=== PATIENT | female | born 2000 | race Caucasian/White ===

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

== ENCOUNTER 2021-01-10 12:52 | Emergency (ER) | payer SELFPAY ==
[~2021-01-10] VITALS: Ht 160 cm; Wt 86.4 kg
[~2021-01-10 12:52] MED LIST changes: -TRAM-29 PO; +TRAM-48 PO
[2021-01-10 13:20] VITALS: BP 137/79
--- NOTE | 2021-01-10 15:17 | ED.ADGEN ---
Past Medical History Past Medical History: Bronchitis, IBS, Other Additional Past Medical Histor: pre diabetes, seasonal allergies Past Surgical History: Other Additional Past Surgical Histo: bilateral eye sx Smoking Status: Current Every Day Smoker Alcohol Use: Occasionally Drug Use: Marijuana General Adult EDM: Chief Complaint: SORE THROAT HPI: HPI: Patient is a 20 year old female who presents emergency department with complaints of a sore throat, runny nose, nasal congestion, and bilateral ear fullness for the last 3 days. She also complained that her eyes felt like they had been burning and she had had increased amounts of crusting upon awakening. She denied any vision changes, tearing, or eye discharge throughout the day. Patient had a history of seasonal allergies but is not taking any allergy medications at this time. She denied any known exposure to COVID-19. The patient denies any fever, cough, body aches, fatigue, rash, abdominal pain, nausea, vomiting, diarrhea, or shortness of breath. She currently rates her throat discomfort a 3 out of 10 on the pain scale she denies any alleviating factors, pain is worse with swallowing. Review of Systems: Review of Systems: Complete ROS is negative unless otherwise noted in HPI. Allergies: Allergies: Allergies Coded Allergies Type Severity Reaction Last Updated Verified Penicillins Allergy Intermediate HIVES 07/30/15 Yes Physical Exam: PE: See Above Constitutional: Well developed, well nourished, no acute distress, non-toxic appearance. [] HENT: Normocephalic, atraumatic, bilateral TMs normal, bilateral external ears normal; erythema of posterior pharynx 1+ tonsils bilaterally, white exudate present, no palatal petechiae, nose congested bilaterally with erythemic turbinates Eyes: PERRLA, EOMI, conjunctiva normal, no discharge. [] Neck: Normal range of motion, supple, nontender, no stridor. [] Cardiovascular:Heart rate regular rhythm Lungs & Thorax: Respirations even and unlabored, no retractions, no respiratory distress Skin: Warm, dry, no erythema, no rash. [] Extremities: No cyanosis, ROM intact, no edema. [] Neurologic: Alert and oriented X 3, no focal deficits noted. [] Psychologic: Affect normal, judgement normal, mood normal. [] Current Patient Data: Labs: Laboratory Tests Test 01/10/21 13:48 Group A Streptococcus Rapid Negative (NEGATIVE) Vital Signs: Vital Signs Date Time Temp Pulse Resp B/P (MAP) Pulse Ox O2 Delivery O2 Flow Rate FiO2 01/10/21 13:20 98.5 75 18 137/79 (98) 100 Room Air 98.5 EKG: EKG: [] Heart Score: C/O Chest Pain: No Risk Scores: Score 0 - 3: 2.5% MACE over next 6 weeks - Discharge Home Score 4 - 6: 20.3% MACE over next 6 weeks - Admit for Clinical Observation Score 7 - 10: 72.7% MACE over next 6 weeks - Early Invasive Strategies Radiology/Procedures: Radiology/Procedures: Rapid strep is negative [] Course & Med Decision Making: Course & Med Decision Making Pertinent Labs and Imaging studies reviewed. (See chart for details) Patient presented emergency department with complaints of sore throat, postnasal drainage, nasal congestion, and ear congestion for the last 3 days. Patient's rapid strep was negative. She denied any known exposure to COVID-19. Advised the patient that have a low suspicion that she has COVID-19 I offered to test the patient for Covid if she would like. Patient reported that she did want to be treated for Covid so I ordered a Covid swab. I advised the patient to take a daily antihistamine and recommended salt water gargles. I encouraged her to follow-up with her primary care doctor. Patient was given verbal discharge instructions by myself, she left before the written discharge paperwork was given to her and before the COVID-19 swab was collected, the patient leaving before written instructions did not change my plan of care. [] Dragon Disclaimer: Issa Disclaimer: This electronic medical record was generated, in whole or in part, using a voice recognition dictation system. Departure Departure Impression: Primary Impression: Allergic rhinitis Additional Impression: Pharyngitis, acute Disposition: 01 DC HOME SELF CARE/HOMELESS Condition: STABLE Referrals: NO PCP (PCP) Patient Instructions: Allergic Rhinitis, Viral and Bacterial Pharyngitis, Aall-ej-Tnsj Additional Instructions: Recommend that you take 10 mg of generic Zyrtec (cetirizine) or Claritin at bedtime and use over the counter Flonase (fluticasone) nasal spray 2 sprays each nostril once daily in the morning. You may take Tylenol or ibuprofen as needed for pain/fever. Increase clear fluids. Avoid triggers such as smoke, fragrance, dust, and pollen. You may take OTC cough suppressants as needed. Follow-up with your primary care doctor if symptoms persist, return to the ER if symptoms worsen. Problem Qualifiers Primary Impression: Allergic rhinitis Allergic rhinitis trigger: unspecified Allergic rhinitis seasonality: unspecified Qualified Codes: J30.9 - Allergic rhinitis, unspecified Additional Impression: Pharyngitis, acute Pharyngitis/tonsillitis etiology: unspecified etiology Qualified Codes: J02.9 - Acute pharyngitis, unspecified KIERAN BAIG [employer] SUPERVISOR Jan 10, 2021 15:17
== END 2021-01-10 15:10 | disposition home or self-care (01) ==
LOC: ER 12:52
DX: J30.9 Allergic rhinitis, unspecified (principal); J02.9 Acute pharyngitis, unspecified; R09.81 Nasal congestion; F17.200 Nicotine dependence, unspecified, uncomplicated; F12.90 Cannabis use, unspecified, uncomplicated; Z98.890 Other specified postprocedural states; Z88.0 Allergy status to penicillin
CPT/HCPCS: 87070; 87880; 99283

== ENCOUNTER 2021-04-26 04:22 | Emergency (ER) | payer SELFPAY ==
[~2021-04-26] VITALS: Ht 167.6 cm; Wt 68.1 kg
[2021-04-26 04:25] VITALS: BP 137/79
[2021-04-26 05:08] LABS: U PREG PATIENT NEGATIVE (NEG)
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
[2021-04-26] MEDS ORDERED: TRAM-48 PO (05:22)
--- NOTE | 2021-04-26 05:58 | RAD ---
INDICATION: Trauma COMPARISON: March 04, 2021 IMPRESSION: 4 views of the chest and right ribs. Cardiac silhouette unremarkable. No focal airspace consolidation. No definite acute fracture is seen. Electronically signed by: Elia Gr MD (04/26/2021 5:55 AM) [id number]
== END 2021-04-26 05:56 | disposition left against medical advice (07) ==
LOC: ER 04:22 → EEVIPCON 04:22 → ER 05:56
DX: S20.211A Contusion of right front wall of thorax, initial encounter (principal); K58.9 Irritable bowel syndrome, unspecified; F17.200 Nicotine dependence, unspecified, uncomplicated; Z88.0 Allergy status to penicillin; Y08.89XA Assault by other specified means, initial encounter; Y93.89 Activity, other specified; Y92.89 Other specified places as the place of occurrence of the external cause; Y99.8 Other external cause status
CPT/HCPCS: 71101; 81025; 99284